=== PATIENT | female | born 1940 | race African-American/Black ===

== ENCOUNTER → 2020-02-20 | Outpatient (CLI) | payer OTHER | LOC: CAT 12:03 | DX: Z87.81 Personal history of (healed) traumatic fracture (principal); M25.572 Pain in left ankle and joints of left foot ==

== ENCOUNTER → 2020-03-04 | Outpatient (CLI) | payer OTHER ==
[~2020-03-04] VITALS: Ht 157.5 cm; Wt 62.1 kg
[~2020-03-04] MED LIST: ASA81BEC PO; LEVO-T50 MCG PO; NEURONTIN100 MG PO; NORCO 5-325 TA1 EAC1 PO; PROTONIX40 M1 PO; TRAZODONE HCL50 MG PO
[2020-03-04 10:39] LABS: HEMATOCRIT 37.4 % (37.0-47.0); HEMOGLOBIN 12.5 gm/dL (12.0-15.0); MCH 30.1 pg (26.0-34.0); MCHC 33.4 g/dL (28.0-37.0); MCV 90.1 fL (80.0-100.0); RBC 4.15 mil/uL (4.20-5.00); RDW 14.2 % (10.5-14.5); WBC 5.9 thou/uL (4.0-11.0)
[2020-03-04 10:41] LABS: URINE BILIRUBIN NEGATIVE (Negative); URINE BLOOD NEGATIVE (Negative); URINE CLARITY CLEAR; URINE COLOR YELLOW; URINE GLUCOSE-RANDOM* NEGATIVE (Negative); URINE KETONES NEGATIVE (Negative); URINE LEUKOCYTES-REFLEX TRACE (Negative); URINE NITRITE-REFLEX NEGATIVE (Negative); URINE PROTEIN (DIPSTICK) NEGATIVE (Negative); URINE SPECIFIC GRAVITY 1.015 (1.005-1.035); URINE UROBILINOGEN 0.2 E.U./dl (0.2-1.0)
[2020-03-04 10:55] LABS: PROTIME 10.2 Seconds (9.3-11.4)
[2020-03-04 10:57] LABS: CALCIUM 8.7 mg/dL (8.5-10.1); CREATININE 0.9 mg/dL (0.6-1.0); POTASSIUM 3.3 mmol/L (3.5-5.1)
== END ==
LOC: PAC 08:00 → PRE 03-07 08:39 → EDSTATUS 03-07 13:08
PROVIDERS: ATTEND Orthopaedic Surgery Foot and Ankle Surgery
DX: Z01.812 Encounter for preprocedural laboratory examination (principal); Z11.59 Encounter for screening for other viral diseases